=== PATIENT | female | born 1995 | race African-American/Black ===

== ENCOUNTER 2018-01-26 06:00 | Emergency (ER) | payer OTHER ==
[~2018-01-26] VITALS: Ht 162.6 cm; Wt 108.0 kg
[~2018-01-26 06:00] MED LIST: CEPH500C3 PO; CLIN150 PO; FLAG500T PO; IBUP800T23 PO
[2018-01-26 06:02] VITALS: BP 119/67; PULSE 77; RESP 15; TEMP 98.4; O2SAT 96
[2018-01-26 06:27] VITALS: BP 108/72; PULSE 70; RESP 16; TEMP 98.6; O2SAT 98
--- NOTE | 2018-01-26 06:40 | PD ---
HPI Chief Complaint: Complaint Time Seen by Provider: 06:33 Travel History International Travel<30 days: No Contact w/Intl Traveler<30days: No Traveled to known affect area: No History of Present Illness HPI 22-year-old female complains of right-sided flank pain and dysuria and frequency. Patient states the symptoms started yesterday. Patient states that his symptoms are intermittent yesterday and got persistent since last night. Patient denies any fever chills. Patient denies any nausea vomiting. Patient denies any vaginal discharge or bleeding. Patient denies any chance of being . Patient states the pain is sharp pain and localized to the lateral aspect of the right flank area. Patient denies any pain radiation. Patient states that the pain is worse good movement. On a scale of 1-10 the pain is a 5. PFSH Past Medical History Medical History: Denies Significant Hx Immunizations Current: Yes Tetanus Vaccination: Unknown Influenza Vaccination: No ?: Not LMP: 01/13/2018 Past Surgical History Other Surgery: Yes (pilidial cyst removed) Social History Alcohol Use: Yes (socially) Tobacco Use: No Substance Use: No Allergies-Medications (Allergen,Severity, Reaction): Coded Allergies: lidocaine (Verified Allergy, Severe, hypotension, 01/26/18) Reported Meds & Prescriptions Reported Meds & Active Scripts Active No Active Prescriptions or Reported Medications Review of Systems General / Constitutional: No: Fever Eyes: No: Visual changes HENT: No: Headaches Cardiovascular: No: Chest Pain or Discomfort Respiratory: No: Shortness of Breath Gastrointestinal: No: Abdominal Pain Genitourinary: No: Dysuria Musculoskeletal: No: Pain Skin: No Rash Neurologic: No: Weakness Psychiatric: No: Depression Endocrine: No: Polydipsia Hematologic/Lymphatic: No: Easy Bruising Physical Exam Narrative GENERAL: Well-nourished, well-developed patient. SKIN: Focused skin assessment warm/dry. HEAD: Normocephalic. EYES: No scleral icterus. No injection or drainage. NECK: Supple, trachea midline. No JVD or lymphadenopathy. CARDIOVASCULAR: Regular rate and rhythm without murmurs, gallops, or rubs. RESPIRATORY: Breath sounds equal bilaterally. No accessory muscle use. GASTROINTESTINAL: Abdomen soft, non-tender, nondistended. MUSCULOSKELETAL: No cyanosis, or edema. BACK: Nontender without obvious deformity. No CVA tenderness. Patient had mild tenderness in palpation lateral aspect of the right side of the abdomen. No CVA tenderness. The pain is reproducible on palpation. No redness no heat no rash noted. Data Data Last Documented VS Vital Signs Date Time Temp Pulse Resp B/P (MAP) Pulse Ox O2 Delivery O2 Flow Rate FiO2 01/26/18 06:27 98.6 70 16 108/72 (84) 98 Room Air Orders Orders Urinalysis - C+S If Indicated (01/26/18 06:24) Ed Urine Pregnancytest Poc (01/26/18 06:24) MDM Medical Decision Making Medical Screen Exam Complete: Yes Emergency Medical Condition: Yes Differential Diagnosis Differential diagnosis including UTI, pyelonephritis, nephrolithiasis. Narrative Course 22-year-old female with right-sided flank pain and dysuria and frequency. Scripts No Active Prescriptions or Reported Meds Deonte Coe MD Jan 26, 2018 06:40
[2018-01-26 07:05] LABS: AMORPHOUS SEDIMENT, URINE RARE; BACTERIA, URINE RARE /hpf; BILIRUBIN, URINE NEG (NEG); BLOOD, URINE SMALL (NEG); GLUCOSE,URINE NEG (NEG); KETONE, URINE NEG (NEG); MUCUS URINE FEW /lpf (OCC); NITRITE,URINE NEG (NEG); SQUAMOUS EPITHELIAL CELL URINE 27 /hpf (0-5); URINE COLOR YELLOW (YELLW/STRAW); URINE LEUKOCYTE ESTERASE LARGE (NEG)
[2018-01-26] MEDS ORDERED: MACR100C2 PO (07:14)
[2018-01-26] MEDS ORDERED: NITROFURANTOIN MONOHYD MACROCR 100 MG CAP PO ONE (07:15)
--- NOTE | 2018-01-26 07:15 | PD ---
Physical Exam Date Seen by Provider: Jan 26, 2018 Time Seen by Provider: 07:11 Narrative 22-year-old female came to the emergency room with history of dysuria and frequency and right flank pain. She was seen by the previous ER physician. Please refer to his history and physical for further detail. Signout was to follow-up on UA. UA suggestive of UTI. Have given her dose of Macrobid. Patient has stable vital signs. I am comfortable discharging her home with a prescription for Macrobid. Data Data Last Documented VS Vital Signs Date Time Temp Pulse Resp B/P (MAP) Pulse Ox O2 Delivery O2 Flow Rate FiO2 01/26/18 07:39 70 18 112/72 (85) 98 Orders Orders Urinalysis - C+S If Indicated (01/26/18 06:24) Ed Urine Pregnancytest Poc (01/26/18 06:24) Urine Culture (01/26/18 06:25) Nitrofurantoin Monohyd Macrocr (Macrobid (01/26/18 07:15) Ed Discharge Order (01/26/18 07:15) Labs Laboratory Tests Test 01/26/18 06:25 Urine Color YELLOW Urine Turbidity HAZY Urine pH 6.0 Urine Specific [place] 1.041 Urine Protein 30 mg/dL Urine Glucose (UA) NEG mg/dL Urine Ketones NEG mg/dL Urine Occult Blood SMALL Urine Nitrite NEG Urine Bilirubin NEG Urine Urobilinogen LESS THAN 2.0 MG/DL Urine Leukocyte Esterase LARGE Urine RBC 10 /hpf Urine WBC 35 /hpf Urine Squamous Epithelial Cells 27 /hpf Urine Amorphous Sediment RARE Urine Bacteria RARE /hpf Urine Mucus FEW /lpf Microscopic Urinalysis Comment CULTURE INDICATED MDM Supervised Visit with GENA: No Diagnosis Primary Impression: UTI (urinary tract infection) Qualified Codes: N39.0 - Urinary tract infection, site not specified Additional Impression: Pyelonephritis Referrals: Primary Care Physician Additional Instruction: Take the medication as per the prescription direction. Drink lots of fluid. Drink cranberry juice. Return to the ER if condition worsens or any other new concerns. Med/Other Pt SpecificInfo: Prescription(s) given Scripts Nitrofurantoin Monohydrate Macrocrystals (Macrobid) 100 Mg Cap 100 MG PO BID for Infection for 10 Days, #20 CAP 0 Refills Prov: Eliseo Fields MD 01/26/18 Disposition: 01 DISCHARGE HOME Condition: Stable Eliseo Fields MD Jan 26, 2018 07:14
[2018-01-26 07:39] VITALS: BP 112/72
== END 2018-01-26 07:40 | disposition home or self-care (01) ==
LOC: NEPC 06:00
DX: N12 Tubulo-interstitial nephritis, not specified as acute or chronic (principal)
CPT/HCPCS: 81001; 84703; 87086; 99283